=== PATIENT | male | born 1985 | race Caucasian/White ===

== ENCOUNTER 2018-06-01 13:09 | Emergency (ER) | payer SELFPAY ==
--- NOTE | 2018-06-01 14:33 | C.PDOC ---
History Of Present Illness 32 y/o male pt with hx of STD presents to the ER c/o swollen right testicle for 3 days. Pt reports it is difficult to ambulate due to pain and that this has never happened before. Pt denies fever, vomiting and penile discharge. Pt is currently sexually active. Time Seen by Provider: 06/01/18 14:22 Chief Complaint (Nursing): Male Genitourinary History Per: Patient History/Exam Limitations: no limitations Onset/Duration Of Symptoms: Days (x3 ) Current Symptoms Are (Timing): Still Present Past Medical History Reviewed: Historical Data, Nursing Documentation, Vital Signs Vital Signs: Last Vital Signs Temp 99.1 F 06/01/18 13:32 Pulse 106 H 06/01/18 13:32 Resp 22 06/01/18 13:32 BP 125/75 06/01/18 13:32 Pulse Ox 100 06/01/18 13:32 - [facility] Procedures APPLICATION OF SPLINT (10/16/14) Family History: States: Unknown Family Hx - Social History Hx Tobacco Use: No Hx Alcohol Use: Yes Hx Substance Use: No - Immunization History Hx Tetanus Toxoid Vaccination: No Hx Influenza Vaccination: Yes Hx Pneumococcal Vaccination: No Review Of Systems Except As Marked, All Systems Reviewed And Found Negative. Constitutional: Negative for: Fever Gastrointestinal: Negative for: Vomiting Genitourinary: Positive for: Other (right testicular pain; no penile discharge) Physical Exam - Physical Exam Appears: Non-toxic, No Acute Distress Skin: Warm, Dry Head: Normacephalic Eye(s): bilateral: Normal Inspection, EOMI Gastrointestinal/Abdominal: Soft, No Tenderness Male Genital: Testicular Tenderness, Scrotal Swelling (right), Circumcised, No Other (penile discharge) Extremity: Normal ROM (x4) Neurological/Psych: Oriented x3, Normal Speech ED Course And Treatment - Laboratory Results Result Diagrams: 06/01/18 14:38 06/01/18 14:38 O2 Sat by Pulse Oximetry: 100 (RA) Pulse Ox Interpretation: Normal - CT Scan/US Testicular US Other Rad Studies (CT/US): Read By Radiologist, Radiology Report Reviewed CT/US Interpretation: Accession No. : [id number]. Patient Name / ID : JOHANNY MARLEY / [id number]. Exam Date : 06/01/2018 15:20:39 ( Approved ). Study Comment : Sex / Age : M / 32Y. Creator : Abbey Santos MD. Dictator : Abbey Sanots MD. Psychologist Social : Cartoon Animator : Abbey Santos MD. Approver2 : Report Date : 06/01/2018 16:01:36. My Comment : . Date of service: 06/01/2018. HISTORY: right scrotal pain. TECHNIQUE: Realtime sonography through the scrotum with color and doppler flow. COMPARISON: None Available. FINDINGS: RIGHT TESTICLE: Measures 4.9 x 3.1 x 3.4 cm. Normal echotexture and flow. RIGHT EPIDIDYMIS: Epididymal head measures 2.3 x 1.3 x 2.2 cm. Grossly unremarkable appearance with normal flow. LEFT TESTICLE: Measures 5.5 x 3.2 x 2.6 cm. Normal echotexture and flow. LEFT EPIDIDYMIS: Epididymal head measures 0.7 x 1.6 x 1.1 cm. Grossly unremarkable appearance with normal flow. HYDROCELE: Small size right sided hydrocele noted. VARICO LAURE: None. OTHER FINDINGS: None. IMPRESSION: Diffuse enlargement of the right epididymis with increased vascularity suggestive of right epididymitis. Small right-sided hydrocele. Heterogeneous echotexture of the left testicle associated with mild increased echogenicity and vascularity which may represent orchitis. No evidence of testicular torsion. Medical Decision Making Medical Decision Making: Impression: hernia Plans: -- chem labs -- blood work -- Chlamydia, GC -- toradol -- Urine Cx -- UA -- testicular US Reassess: US showed pt has epididymis and UTI. US results discussed with pt and pt will be treated for both epididymis and UTI. Disposition - Disposition Referrals: Oliverio West Jr., MD [Staff Provider] - Disposition: HOME/ ROUTINE Disposition Time: 17:10 Condition: GOOD Additional Instructions: Follow up with urology clinic as soon as possible and take cipro, motrin as directed. Prescriptions: Ciprofloxacin HCl [Cipro] 250 mg PO Q12 #14 tablet Ibuprofen [Motrin] 600 mg PO Q6 #20 tab Instructions: Urinary Tract Infections in Adults, Epididymitis (DC) Forms: [employer] ([place]) - Clinical Impression Clinical Impression: Epididymitis - Scribe Statement The provider has reviewed the documentation as recorded by the Scribe Keyona Spencer Provider Attestation: All medical record entries made by the Scribe were at my direction and personally dictated by me. I have reviewed the chart and agree that the record accurately reflects my personal performance of the history, physical exam, medical decision making, and the department course for this patient. I have also personally directed, reviewed, and agree with the discharge instructions and disposition.
[2018-06-01 14:43] LABS: BASO % 0.3 % (0.0-2.0); EOS % 0.2 % (0.0-4.0); HEMOGLOBIN 12.7 g/dL (12.0-18.0); LYMPH # 1.6 K/uL (1.0-4.3); LYMPH % 20.5 % (20.0-40.0); MEAN CELL VOLUME 90.9 fL (80.0-94.0); MEAN CORPUSCULAR HEMOGLOBIN 29.9 pg (27.0-31.0); MEAN CORPUSCULAR HGB CONC 32.9 g/dL (33.0-37.0); MEAN PLATELET VOLUME 8.4 fL (7.2-11.7); MONO # 0.7 K/uL (0.0-0.8); MONO % 8.4 % (0.0-10.0); NEUT # 5.5 K/uL (1.8-7.0); NEUT % 70.6 % (50.0-75.0); NRBC % 0.1 % (0.0-2.0); RBC 4.24 Mil/uL (4.40-5.90); RED CELL DISTRIBUTION WIDTH 13.4 % (11.5-14.5); WHITE BLOOD COUNT 7.8 K/uL (4.8-10.8)
[2018-06-01 14:53] LABS: ALB/GLOB RATIO 1.1 (1.0-2.1); ALBUMIN 3.9 g/dL (3.5-5.0); ALT/SGPT 73 U/L (21-72); AST/SGOT 35 U/L (17-59); BLOOD UREA NITROGEN 11 mg/dL (9-20); CALCIUM 8.3 mg/dl (8.6-10.4); GFR NON-AFRICAN AMERICAN > 60
[2018-06-01 15:07] LABS: URINE BACTERIA OCC (<OCC); URINE BILIRUBIN NEGATIVE (NEGATIVE); URINE BLOOD 1+ (NEGATIVE); URINE CLARITY SLHAZY (Clear); URINE COLOR Yellow (YELLOW); URINE GLUCOSE (UA) NORMAL (Normal); URINE LEUKOCYTE ESTERASE 2+ Leu/uL (Negative); URINE PROTEIN NEGATIVE (NEGATIVE); URINE UROBILINOGEN NORMAL mg/dL (0.2-1.0)
[2018-06-01 16:01] VITALS: RESP 17; TEMP 98.6
--- NOTE | 2018-06-01 16:05 | US ---
Date of service: 06/01/2018 HISTORY: right scrotal pain TECHNIQUE: Realtime sonography through the scrotum with color and doppler flow. COMPARISON: None Available. FINDINGS: RIGHT TESTICLE: Measures 4.9 x 3.1 x 3.4 cm. Normal echotexture and flow. RIGHT EPIDIDYMIS: Epididymal head measures 2.3 x 1.3 x 2.2 cm. Grossly unremarkable appearance with normal flow. LEFT TESTICLE: Measures 5.5 x 3.2 x 2.6 cm. Normal echotexture and flow. LEFT EPIDIDYMIS: Epididymal head measures 0.7 x 1.6 x 1.1 cm. Grossly unremarkable appearance with normal flow. HYDROCELE: Small size right sided hydrocele noted. VARICOCELE: None. OTHER FINDINGS: None. IMPRESSION: Diffuse enlargement of the right epididymis with increased vascularity suggestive of right epididymitis. Small right-sided hydrocele. Heterogeneous echotexture of the left testicle associated with mild increased echogenicity and vascularity which may represent orchitis. No evidence of testicular torsion.
[2018-06-01 16:11] VITALS: O2SAT 100
[2018-06-01] MEDS ORDERED: cefTRIAXone (Rocephin) 250 mg Inj IM STA (16:45)
[2018-06-01 16:48] VITALS: BP 114/65; PULSE 93
== END 2018-06-01 17:12 | disposition home or self-care (01) ==
LOC: C.ER 13:09
DX: N45.1 Epididymitis (principal)
CPT/HCPCS: 76870; 80053; 81001; 85025; 87086; 87491; 87591; 96372; 99284; J0696; J1885

== ENCOUNTER 2018-11-11 01:15 | Emergency (ER) | payer SELFPAY ==
--- NOTE | 2018-11-11 01:38 | C.PDOC ---
Chief Complaint (Nursing): Anxiety Past Medical History Vital Signs: Last Vital Signs Temp 103 F H 11/11/18 01:24 Pulse 148 H 11/11/18 01:24 Resp 20 11/11/18 01:24 BP 123/85 11/11/18 01:24 Pulse Ox 98 11/11/18 01:24 Primary Care Provider: Non [facility] Provider, - [facility] Procedures APPLICATION OF SPLINT (10/16/14) Family History: States: Unknown Family Hx - Social History Hx Tobacco Use: No Hx Alcohol Use: Yes Hx Substance Use: Yes - Immunization History Hx Tetanus Toxoid Vaccination: No Hx Influenza Vaccination: Yes Hx Pneumococcal Vaccination: No ED Course And Treatment ECG: Interpreted By Me, Viewed By Me ECG Rhythm: Sinus Tachycardia (136), Nonspecific Changes O2 Sat by Pulse Oximetry: 98 Pulse Ox Interpretation: Normal Disposition - Disposition
--- NOTE | 2018-11-11 02:19 | C.PDOC ---
History Of Present Illness 33 year old male presents to the ED c/o palpitations, feeling nervous, and fever that started today. Patient states he felt warm today, took two showers with no relief. 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 Patient reports that today he was around people smoking a lot of meth and believe it might have caused his symptoms. Patient denies drug use today, headache, dizziness, rash, weakness, numbness, SOB, CP, nausea, vomiting, injury, fall, trauma. Chief Complaint (Nursing): Anxiety History Per: Patient History/Exam Limitations: no limitations Onset/Duration Of Symptoms: Hrs Current Symptoms Are (Timing): Still Present Recent travel outside of the [place]: No Additional History Per: Patient Past Medical History Reviewed: Historical Data, Nursing Documentation, Vital Signs Vital Signs: Last Vital Signs Temp 103 F H 11/11/18 01:24 Pulse 148 H 11/11/18 01:24 Resp 20 11/11/18 01:24 BP 123/85 11/11/18 01:24 Pulse Ox 98 11/11/18 01:38 Primary Care Provider: Non [facility] Provider, - Medical History PMH: No Chronic Diseases Surgical History: No Surg Hx - [facility] Procedures APPLICATION OF SPLINT (10/16/14) Family History: States: Unknown Family Hx - Social History Hx Tobacco Use: No Hx Alcohol Use: Yes Hx Substance Use: Yes - Immunization History Hx Tetanus Toxoid Vaccination: No Hx Influenza Vaccination: Yes Hx Pneumococcal Vaccination: No Review Of Systems Constitutional: Positive for: Fever. Negative for: Chills Eyes: Negative for: Vision Change Cardiovascular: Positive for: Palpitations. Negative for: Chest Pain Respiratory: Negative for: Shortness of Breath Gastrointestinal: Negative for: Nausea, Vomiting, Abdominal Pain Skin: Negative for: Rash Neurological: Negative for: Weakness, Numbness, Headache, Dizziness Psych: Positive for: Anxiety Physical Exam - Physical Exam Appears: Non-toxic, No Acute Distress, Other (anxious) Skin: Normal Color, Warm, Dry, Other (left arm track manning) Head: Atraumatic, Normacephalic Eye(s): bilateral: Normal Inspection, PERRL, EOMI Ear(s): Bilateral: Normal Nose: No Discharge Oral Mucosa: Moist Tongue: Normal Appearing Lips: Normal Appearing Throat: Erythema (swelling ), No Exudate Neck: Normal ROM, Supple Chest: Symmetrical Cardiovascular: Rhythm Regular (tachycardic) Respiratory: Normal Breath Sounds, No Rales, No Rhonchi, No Wheezing Gastrointestinal/Abdominal: Soft, No Tenderness, No Distention Extremity: Normal ROM, No Tenderness Neurological/Psych: Oriented x3, Normal Speech, Normal Cognition Gait: Steady ED Course And Treatment - Laboratory Results Result Diagrams: 11/11/18 02:45 11/11/18 02:45 ECG: Interpreted By Me, Viewed By Me ECG Rhythm: Sinus Tachycardia Rate From EC (BPM) O2 Sat by Pulse Oximetry: 98 (ON RA) Pulse Ox Interpretation: Normal Medical Decision Making Medical Decision Making: Plan: Sepsis Workup due to fever, recent drug use, and track manning noted on arms * Labs including VBG ordered * EKG ordered * CXR ordered * Tylenol 650 mg PO for fever * UA including drug screen, Urine culture and blood culture ordered - Reviewed Labs, UA, Tox (+ for Amphetamines), and CXR with Dr. Juarez- questionable infiltrate; will treat with Zithromax -Temp lowered to 99.9F - Patient stable for discharge Disposition Counseled Patient/Family Regarding: Studies Performed, Diagnosis, Need For Followup, Rx Given - Disposition Referrals: [facility] [Outside] Non [facility] Provider, [Non-Staff] - [place] [facility] [Outside] Disposition: HOME/ ROUTINE Disposition Time: 04:09 Condition: IMPROVED Additional Instructions: Alternate Tylenol and Motrin as needed for fever Continue antibiotics for 4 days Rest and Hydration [facility] from [facility] Follow up with PMD if symptoms persist Return to ED if symptoms worsen Prescriptions: Acetaminophen [Tylenol] 650 mg PO Q6 PRN #30 capsule PRN Reason: Fever >100.4 F Azithromycin [Zithromax] 250 mg PO DAILY 4 Days #4 tab Ibuprofen [Motrin] 600 mg PO Q6 PRN #30 tab PRN Reason: Fever >100.4 F Instructions: Pneumonia in Adults, Anxiety, Adult (DC), When to Worry About a Fever Forms: [facility] (Ukrainian) - Clinical Impression Clinical Impression: Fever, Anxiety, Drug abuse - PA / CEMENT OR CONCRETE FINISHING SUPERVISOR / Resident Statement MD/DO has reviewed & agrees with the documentation as recorded. - Scribe Statement The provider has reviewed the documentation as recorded by the Scribe Daniel Bahena All medical record entries made by the Scribe were at my direction and personally dictated by me. I have reviewed the chart and agree that the record accurately reflects my personal performance of the history, physical exam, medical decision making, and the department course for this patient. I have also personally directed, reviewed, and agree with the discharge instructions and disposition.
[2018-11-11 02:50] LABS: LYMPH # 0.9 K/uL (1.0-4.3); MEAN CORPUSCULAR HEMOGLOBIN 30.9 pg (27.0-31.0); NEUT # 6.6 K/uL (1.8-7.0); WHITE BLOOD COUNT 7.9 K/uL (4.8-10.8)
[2018-11-11 02:57] LABS: INR 1.2; PARTIAL THROMBOPLASTIN TIME 28.7 SECONDS (21-34); PROTHROMBIN TIME 12.7 SECONDS (9.7-12.2)
[2018-11-11 03:00] LABS: BASO % 0.4 % (0.0-2.0); EOS % 0.1 % (0.0-4.0); LYMPH % 11.5 % (20.0-40.0); MEAN CELL VOLUME 90.3 fL (80.0-94.0); MEAN CORPUSCULAR HGB CONC 34.2 g/dL (33.0-37.0); MEAN PLATELET VOLUME 9.1 fL (7.2-11.7); MONO # 0.4 K/uL (0.0-0.8); MONO % 4.7 % (0.0-10.0); NEUT % 83.3 % (50.0-75.0); NRBC % 0.1 % (0.0-2.0); RBC 4.21 Mil/uL (4.40-5.90); RED CELL DISTRIBUTION WIDTH 12.2 % (11.5-14.5)
[2018-11-11 03:02] LABS: ALB/GLOB RATIO 1.2 (1.0-2.1); ALT/SGPT 187 U/L (21-72); AST/SGOT 128 U/L (17-59); BLOOD UREA NITROGEN 19 mg/dL (9-20); CALCIUM 8.5 mg/dl (8.6-10.4); GFR NON-AFRICAN AMERICAN > 60
[2018-11-11 03:04] LABS: VENOUS BLOOD GAS BASE EXCESS 1.8 mmol/L (0.0-2.0); VENOUS BLOOD GAS PCO2 37 mmHg (40-60); VENOUS BLOOD GAS PO2 66 mm/Hg (30-55); VENOUS BLOOD PH 7.45 (7.32-7.43)
[2018-11-11 03:15] LABS: SQUAMOUS EPITHIAL < 1 /hpf (0-5); URINE BILIRUBIN NEGATIVE (NEGATIVE); URINE BLOOD NEGATIVE (NEGATIVE); URINE CLARITY Clear (Clear); URINE COLOR Yellow (YELLOW); URINE GLUCOSE (UA) NORMAL (Normal); URINE LEUKOCYTE ESTERASE NEG Leu/uL (Negative); URINE PROTEIN NEGATIVE (NEGATIVE); URINE UROBILINOGEN NORMAL mg/dL (0.2-1.0)
[2018-11-11] MEDS ORDERED: Sodium Chloride 0.9% 1,000 ML IV ONE (03:20)
[2018-11-11 03:27] LABS: BARBITURATES, UR NEGATIVE (NEGATIVE); BENZODIAZEPINES, UR NEGATIVE (NEGATIVE); OPIATES, UR NEGATIVE (NEGATIVE); PHENCYCLIDINE, UR NEGATIVE (NEGATIVE)
[2018-11-11] MEDS ORDERED: Sodium Chloride 0.9% 1,000 ML ONE (03:32)
[2018-11-11 04:06] VITALS: BP 96/59; PULSE 122; RESP 24; TEMP 99.9
[2018-11-11 04:08] VITALS: O2SAT 98
--- NOTE | 2018-11-11 17:02 | RAD ---
Date of service: 11/11/2018 HISTORY: Sepsis Patient COMPARISON: No prior. TECHNIQUE: Chest PA and lateral views FINDINGS: LUNGS: No active pulmonary disease. PLEURA: No significant pleural effusion identified. No pneumothorax apparent. CARDIOVASCULAR: No aortic atherosclerotic calcification present. Normal cardiac size. No pulmonary vascular congestion. OSSEOUS STRUCTURES: No significant abnormalities. VISUALIZED UPPER ABDOMEN: Normal. OTHER FINDINGS: None. IMPRESSION: No active disease.
--- NOTE | 2018-11-12 20:46 | CARD ---
APPROVED REPORT Date of service: 11/11/2018 EKG Measurement Heart [id number] <Conclusion> Sinus tachycardia Otherwise normal ECG
== END 2018-11-11 04:35 | disposition home or self-care (01) ==
LOC: C.ER 01:15
DX: R50.9 Fever, unspecified (principal); F41.9 Anxiety disorder, unspecified; F19.10 Other psychoactive substance abuse, uncomplicated
CPT/HCPCS: 71046; 80053; 81001; 82803; 83735; 84100; 85025; 85610; 85730; 87040; 87086; 93005; 96360; 99283; G0480; J7030